=== PATIENT | female | born 1990 | race African-American/Black ===

== ENCOUNTER 2017-09-19 15:55 | Emergency (ER) | payer MEDICAID ==
[~2017-09-19] VITALS: Ht 152.4 cm; Wt 51.3 kg
--- NOTE | 2017-09-19 16:13 | Emergency Room Report ---
History of Present Illness General Chief Complaint: Flu Like Symptoms Source: Patient Present Illness HPI 26 yo female patient presents to ER complaining of MADDEN and shivers. Complains of chills last night. Denies fever or neck pain. Denies weight loss. Reports generalized MADDEN, reports took Tylenol which treated pain. Reports cough with green sputum, denies blood in sputum or calf pain. Reports job interview this morning and feeling worried about it last night. Denies chest pain, SOB, abdominal pain. Denies nausea, vomiting, diarrhea, vision loss. Denies dysuria, hematuria. Reports LMP on month ago, menstrual period begins tomorrow. Denies recent sexual activity. Reports hx of toothache. States has not seen dentist recently. Denies pain with eating. Allergies: Coded Allergies: No Known Allergies (Unverified , 09/19/17) Patient History Past Medical History: see triage record Last Menstrual Period: 08/20/17 Reviewed Nursing Documentation: PMH: Agreed; PSxH: Agreed Nursing Documentation-PMH Past Medical History: No Stated History Review of Systems All Other Systems: negative except mentioned in HPI Physical Exam Vital Signs Date Time Temp Pulse Resp B/P (MAP) Pulse Ox O2 Delivery O2 Flow Rate FiO2 09/19/17 16:07 98.3 82 18 115/74 98 Room Air 98.2 Sp02 EP Interpretation: reviewed, normal General Appearance: well appearing, no apparent distress, alert, GCS 15, non- toxic Head: normocephalic, atraumatic, other - no TTP of maxillary and frontal sinuses Eyes: bilateral eye normal inspection, bilateral eye PERRL ENT: hearing grossly normal, normal pharynx, no angioedema, normal voice, TMs + canals normal, uvula midline, moist mucus membranes, other - no TTP of teeth, multiple dental caries, no erythema of gums, no open sores, no TTP of gums Neck: full range of motion, no meningismus, no bony tend Respiratory: lungs clear, normal breath sounds, no rhonchi, no respiratory distress, no accessory muscle use, no wheezing, speaking full sentences Cardiovascular #1: regular rate, rhythm, no edema Gastrointestinal: non tender, soft, no mass, non-distended, no guarding, no rebound Genitourinary: no CVA tenderness Musculoskeletal: back normal, digits/nails normal, gait/station normal, normal range of motion, non-tender Neurologic: alert, oriented x3, responsive, motor strength/tone normal, sensory intact, other - negative Kernig Psychiatric: mood/affect normal Skin: no rash Lymphatic: no adenopathy Medical Decision Making PA Attestation Dr. Ramos is my supervising Physician whom patient management has been discussed with. Diagnostic Impression: Primary Impression: Cough Additional Impressions: Headache Tooth ache ER Course Pt presents to ED c/o cough and MADDEN. DDX considered but are not limited to influenza, viral URI, strep throat, rhinitis, sinusitis, otitis media, ginigivitis, tension MADDEN, migraine MADDEN, cluster MADDEN. Low suspicion for meningitis, negative Kernig, no fever, no neck pain. VITAL SIGNS are WNL, patient is afebrile ORDERS: none required at this time, diagnosis is clinical ER COURSE: PE benign, lungs clear to auscultation, no pharyngeal erythema or tonsillar exudates. Take Tylenol for MADDEN since it relieves symptoms. Return to ER for new or worsening of symptoms. Cough likely viral in nature, no difficulty breathing, no fever, low suspicion for pneumonia. Does not require imaging at this time, Symptoms possibly related to stress. Followup with dentist, no signs of infection, does not require treatment in ER currently. DISCHARGE: -Rx given for Tylenol/Acetaminophen -Rx given for Promethazine syrup for cough sx. At this time pt is stable for d/c to home. Patient is resting comfortably, in no acute distress, nontoxic appearing. Patient to take medications as instructed Will provide with patient care instructions and any necessary prescriptions. Care plan and follow-up instructions provided. Patient instructed to follow-up with primary care provider in 3 - 5 days. Request neuro referral as needed. Patient questions asked and answered. Patient reports understanding and agreement to treatment plan. ER precautions given. Patient instructed to return to ER immediately for any new or worsening of symptoms including but not limited to increasing SOB, persistent fever. Last Vital Signs Date Time Temp Pulse Resp B/P (MAP) Pulse Ox O2 Delivery O2 Flow Rate FiO2 09/19/17 16:07 98.3 82 18 115/74 98 Room Air 98.2 Disposition: HOME, SELF-CARE Condition: Stable Scripts Promethazine Hcl (PROMETHAZINE HCL*) 6.25 Mg/5 Ml Syrup 5 ML ORAL Q8H, #120 ML 0 Refills Prov: Randy Hu 09/19/17 Acetaminophen* (TYLENOL EXTRA STRENGTH*) 500 Mg Tablet 500 MG ORAL Q8H PRN for Prn Headache/Temp > 101, #30 TAB 0 Refills Prov: Randy Hu 09/19/17 Patient Instructions: Cough, Adult, [id number], Dental Pain, [id number], General Headache Without Cause, [id number] Additional Instructions: Followup with primary care provider in 3 -5 days. Followup with dentist. Take medications as directed. Patient questions asked and answered. ER precautions given, patient instructed to return to ER immediately for any new or worsening of symptoms. Randy Hu Sep 19, 2017 16:13
[2017-09-19 16:24] VITALS: BP 115/74
[2017-09-19] MEDS ORDERED: PROMETHAZI6.25 MG/1 ORAL (16:30)
[2017-09-19] MEDS ORDERED: TYLENOL EXTRA500 MG ORAL (16:30)
[2017-09-19 16:34] VITALS: BP 115/74
== END 2017-09-19 16:35 | disposition home or self-care (01) ==
LOC: EMR 16:30
DX: R51 Headache (principal); R05 Cough; K08.89 Other specified disorders of teeth and supporting structures
CPT/HCPCS: 99284

== ENCOUNTER 2018-08-12 18:03 | Emergency (ER) | payer MEDICAID, OTHER ==
[~2018-08-12] VITALS: Ht 152.4 cm; Wt 50.8 kg
[~2018-08-12 18:03] MED LIST: PROMETHAZI6.25 MG/1 ORAL; TYLENOL EXTRA500 MG ORAL
--- NOTE | 2018-08-12 18:55 | NUR ---
ED Nurse Note: Pt slipped and fell at work on 07/30/18, now complains of L thigh and leg pain. no head trauma, no KO. Pain 11/23 selam. Aox4, VSS. Will cont to monitor.
[2018-08-12] MEDS ORDERED: IBUPROFEN600 MG ORAL (19:27)
--- NOTE | 2018-08-12 19:27 | Emergency Room Report ---
History of Present Illness General Chief Complaint: Lower Extremity Injury Source: Patient Present Illness HPI 27-year-old female patient presents the ER complaining of left hip and inguinal pain for the past 4 days status post trip and fall injury at work. Reports that she was at work when she slipped and went into a "splits like opposed". Reports began experiencing left sided hip and groin pain at that time. States his been taking [id number] medications with mild relief of symptoms. Reports pain with ambulation. Reports pain is been increasing in nature so decided to report to the ER to have evaluation done. Denies hitting her head or loss conscious. Denies abdominal pain. Denies other aggravating or relieving factors. Denies . Allergies: Coded Allergies: No Known Allergies (Unverified , 09/19/17) Patient History Past Medical History: see triage record Last Menstrual Period: 08/05/18 Now: No Reviewed Nursing Documentation: PMH: Agreed; PSxH: Agreed Nursing Documentation-PMH Past Medical History: No Stated History Review of Systems All Other Systems: negative except mentioned in HPI Physical Exam Vital Signs Date Time Temp Pulse Resp B/P (MAP) Pulse Ox O2 Delivery O2 Flow Rate FiO2 08/12/18 18:11 98.1 72 20 114/70 97 Room Air Sp02 EP Interpretation: reviewed, normal General Appearance: well appearing, no apparent distress, alert, GCS 15, non- toxic Head: normocephalic, atraumatic Eyes: bilateral eye normal inspection, bilateral eye PERRL ENT: hearing grossly normal, normal pharynx, no angioedema, normal voice, uvula midline, moist mucus membranes Neck: full range of motion Respiratory: lungs clear, normal breath sounds, no rhonchi, no respiratory distress, no accessory muscle use, no wheezing, speaking full sentences Cardiovascular #1: regular rate, rhythm, no edema Gastrointestinal: non tender, soft, no mass, non-distended, no guarding, no rebound Genitourinary: no CVA tenderness Musculoskeletal: back normal, digits/nails normal, gait/station normal, normal range of motion, non-tender, no calf tenderness, pelvis stable, other - Pain with adduction and internal rotation, no leg length discrepancy Neurologic: alert, oriented x3, responsive, motor strength/tone normal, sensory intact Skin: no rash Medical Decision Making PA Attestation Dr. Fernando is my supervising Physician whom patient management has been discussed with. Diagnostic Impression: Primary Impression: Inguinal strain ER Course Pt. presents to the ED c/o left hip and groin pain. Ddx considered but are not limited to fracture, sprain, strain, contusion, dislocation. No erythema, no warmth to touch, no fever, nontoxic appearing, low suspicion for septic joint. Soft compartments, no pulselessness, no pallor, no paresthesias, low suspicion for compartment syndrome at this time. Vital signs: are WNL, pt. is afebrile Ordered X-ray and pain medication. ER COURSE Provided with pain medication. An X-ray of the hip and pelvis were negative for acute fracture or disease. Likely groin strain causing pain symptoms. Take Motrin or Tylenol for pain symptoms. Patient instructed on RICE method: rest, ice, compression, elevation. Patient instructed on rest, ice and heat. Patient instructed to be WBAT Workmans compensation paperwork completed. Contact information for orthopedic urgent care provided, follow-up with urgent care if unable to followup with primary care provider and get referral to pre billing specialist. Followup with primary care provider. Discuss referral to ortho/pain management/ PT as needed. Discuss further imaging with MRI/CT as needed. DISCHARGE: At this time pt. is stable for d/c to home. Patient is resting comfortably, in no acute distress, nontoxic appearing, talking without difficulty. Will provide printed patient care instructions, and any necessary prescriptions. Patient instructed to follow with primary care provider in 3 - 5 days and to request further follow-up as needed. Care plan and follow up instructions have been discussed with the patient prior to discharge. Take medications as directed. Patient questions asked and answered. Patient reports understanding and agreement to treatment plan. ER precautions given, patient instructed to return to ER immediately for any new or worsening of symptoms. - Please note that this Emergency Department Report was dictated using [employer] producer technology software, occasionally this can lead to erroneous entry secondary to interpretation by the dictation equipment. Other X-Ray Diagnostic Results Other X-Ray Diagnostic Results #1: X-Ray ordered: Left hip # of Views/Limited Vs Complete: 2 View Indication: Pain EP Interpretation: Yes PA Xray: Interpretation reviewed, by supervising MD, and agrees with findings. Interpretation: no dislocation, no soft tissue swelling, no fractures Impression: No acute disease PA Scribe Text David Hu PA-C Other X-Ray Diagnostic Results #2: X-Ray ordered: Pelvis # of Views/Limited Vs Complete: 1 View Indication: Pain EP Interpretation: Yes PA Xray: Interpretation reviewed, by supervising MD, and agrees with findings. Interpretation: no dislocation, no soft tissue swelling, no fractures Impression: No acute disease [place]NA Scribe Text David Hu PA-C Last Vital Signs Date Time Temp Pulse Resp B/P (MAP) Pulse Ox O2 Delivery O2 Flow Rate FiO2 08/12/18 18:11 98.1 72 20 114/70 97 Room Air Status: improved Disposition: HOME, SELF-CARE Condition: Stable Scripts Ibuprofen* (MOTRIN*) 600 Mg Tablet 600 MG ORAL Q8H PRN for For Pain, #30 TAB 0 Refills Prov: Randy Hu 08/12/18 Patient Instructions: Groin Strain Additional Instructions: Patient instructed to follow up with primary care provider and discuss further referral to orthopedics/physical therapy/pain management as needed. If unable to followup with PCP, followup with orthopedic urgent care in 5-7 days , call to schedule appointment. Patient instructed on RICE method: rest, ice, compression, elevation. Patient instructed to WBAT. Take medications as directed. Patient questions asked and answered. ER precautions given, patient instructed to return to ER immediately for any new or worsening of symptoms. [facility] [address] [facility], [address] [email or web address] Randy Hu Aug 12, 2018 19:27
[2018-08-12 19:30] VITALS: BP 114/70
--- NOTE | 2018-08-12 19:30 | NUR ---
ER DISCHARGE NOTE: Patient is cleared to be discharged per ERMD, pt is aox4, on room air, with stable vital signs. pt was given dc and prescription instructions, pt was able to verbalize understanding, pt id band and iv site removed without complications. pt is able to ambulate with steady gait. pt took all belongings.
--- NOTE | 2018-08-13 11:47 | Diagnostic Imaging Report ---
Indication: Left hip pain Technique: 2 views of the left hip Comparison: Findings: No acute fractures. No dislocations. Joint spaces are preserved. Normal mineralization. Impression: No acute process
--- NOTE | 2018-08-13 11:52 | Diagnostic Imaging Report ---
Indication: Pelvic pain Technique: One view of the pelvis Comparison: none Findings: No acute fractures. No dislocations. The joint spaces are preserved Impression: Negative
== END 2018-08-12 19:30 | disposition home or self-care (01) ==
LOC: EMR 18:27
DX: S39.011A Strain of muscle, fascia and tendon of abdomen, initial encounter (principal); W01.0XXA Fall on same level from slipping, tripping and stumbling without subsequent striking against object, initial encounter; Y92.89 Other specified places as the place of occurrence of the external cause; M25.552 Pain in left hip
CPT/HCPCS: 72170; 73502; 99284

== ENCOUNTER 2018-10-17 16:16 | Emergency (ER) | payer SELFPAY ==
[~2018-10-17] VITALS: Ht 152.4 cm; Wt 50.3 kg
[~2018-10-17 16:16] MED LIST changes: +IBUPROFEN600 MG ORAL
[2018-10-17 16:30] VITALS: BP 109/70
[2018-10-17] MEDS ORDERED: NKM (16:33)
--- NOTE | 2018-10-17 16:47 | Emergency Room Report ---
History of Present Illness General Chief Complaint: Flu Like Symptoms Source: Patient Present Illness [facility] The patient is a 27-year-old female presenting for sore throat and cough for the past 2 days. She states that she was at an outdoor festival in [place] one week prior and believes this is where she was infected. She is also complaining of headache. She denies nausea, vomiting, fever, chills, rash. She is up-to-date with immunizations except for influenza Allergies: Coded Allergies: No Known Allergies (Unverified , 09/19/17) Patient History Past Medical History: see triage record Pertinent Family History: none Last Menstrual Period: on period Reviewed Nursing Documentation: PMH: Agreed; PSxH: Agreed Nursing Documentation-PMH Past Medical History: No Stated History Review of Systems All Other Systems: negative except mentioned in HPI Physical Exam Vital Signs Date Time Temp Pulse Resp B/P (MAP) Pulse Ox O2 Delivery O2 Flow Rate FiO2 10/17/18 16:30 99.7 14 109/70 98 Room Air 10/17/18 16:30 68 Sp02 EP Interpretation: reviewed, normal General Appearance: no apparent distress, alert, GCS 15, non-toxic Head: normocephalic, atraumatic Eyes: bilateral eye normal inspection, bilateral eye PERRL ENT: hearing grossly normal, no angioedema, normal voice, TMs + canals normal, uvula midline, tonsillar swelling, pharyngeal erythema Neck: full range of motion, supple/symm/no masses Respiratory: chest non-tender, lungs clear, normal breath sounds, no wheezing, speaking full sentences Cardiovascular #1: regular rate, rhythm, no edema Musculoskeletal: back normal, gait/station normal, normal range of motion, non- tender Neurologic: alert, oriented x3, responsive, motor strength/tone normal, sensory intact, speech normal Psychiatric: judgement/insight normal, memory normal, mood/affect normal, no suicidal/homicidal ideation Skin: normal color, no rash, warm/dry, well hydrated Lymphatic: adenopathy Medical Decision Making PA Attestation Dr. Davalos is my supervising physician. Patient management was discussed with my supervising physician Diagnostic Impression: Primary Impression: Pharyngitis, acute Qualified Codes: J02.9 - Acute pharyngitis, unspecified ER Course The patient is a 27-year-old female presenting for sore throat and cough for the past 2 days. Differential diagnosis include but not limited to pharyngitis, sinusitis, AOM, bronchitis, PNA Physical exam: Vitals within normal limits. Afebrile. No apparent distress HEENT exam: There is bilateral tonsillar edema, erythema. Uvula midline. Moist mucous membranes. There is bilateral cervical lymphadenopathy. Lungs are clear to auscultation bilaterally Skin is warm and dry. No rash The patient will be discharged home with a prescription for amoxicillin, motrin , cough meds, and is given ER precautions. Patient will followup with primary care Last Vital Signs Date Time Temp Pulse Resp B/P (MAP) Pulse Ox O2 Delivery O2 Flow Rate FiO2 10/17/18 16:33 68 14 Room Air 10/17/18 16:30 99.7 98 10/17/18 16:30 109/70 Status: improved Disposition: HOME, SELF-CARE Condition: Improved Scripts D-Methorphan Hb/Prometh Hcl* (PROMETHAZINE-DM SYRUP*) 118 Ml Syrup 5 ML ORAL Q6H PRN for For Cough, #118 ML 0 Refills Prov: SIERRA NEWELL P.A. 10/17/18 Amoxicillin* (AMOXIL*) 500 Mg Capsule 500 MG ORAL Q12HR, #14 CAP Prov: TERZIANJAYJAYY P.A. 10/17/18 Ibuprofen* (MOTRIN*) 600 Mg Tablet 600 MG ORAL Q8H PRN for For Pain, #30 TAB 0 Refills Prov: TAANJAYJAYY P.A. 10/17/18 SIERRA NEWELL P.A. October 17, 2018 16:47
[2018-10-17] MEDS ORDERED: IBUPROFEN600 MG ORAL (16:58)
[2018-10-17] MEDS ORDERED: PROMETHAZINE-D118 ML ORAL (16:58)
[2018-10-17] MEDS ORDERED: AMOXICILLIN500 MG ORAL (16:58)
[2018-10-17] MEDS ORDERED: Ketorolac 60mg Inj IM ONE (17:00)
[2018-10-17 17:20] VITALS: BP 109/70
== END 2018-10-17 17:20 | disposition home or self-care (01) ==
LOC: EMR 16:55
DX: J02.9 Acute pharyngitis, unspecified (principal)
CPT/HCPCS: 96372; 99283

== ENCOUNTER 2019-02-18 02:00 | Emergency (ER) | payer SELFPAY ==
[~2019-02-18] VITALS: Ht 152.4 cm; Wt 51.3 kg
[~2019-02-18 02:00] MED LIST changes: +AMOXICILLIN500 MG ORAL; +NKM; +PROMETHAZINE-D118 ML ORAL
--- NOTE | 2019-02-18 02:10 | NUR ---
ED Nurse Note: Patient presents with complaints of itching all over since friday. Patient has concerns of bed bug bites.
[2019-02-18 02:11] VITALS: BP 117/77
[2019-02-18] MEDS ORDERED: BACTRIM DS TAB1 EAC1 ORAL (02:26)
[2019-02-18] MEDS ORDERED: BENADRYL25 MG ORAL (02:26)
--- NOTE | 2019-02-18 02:26 | Emergency Room Report ---
History of Present Illness General Chief Complaint: Skin Rash/Abscess Source: Patient Present Illness HPI This is a 28-year-old with no past medical history. She presents chief complaint of rash and itching. Onset for the last 4 days. She slept at a friend's friend's house on Friday. The next day she developed some rash on her body and forearm. Getting worse. Now with some redness. Has not take anything for it. Does not know other people at the same problem. Denies any fever chills but denies any nausea vomiting but no drainage. Allergies: Coded Allergies: No Known Allergies (Unverified , 09/19/17) Patient History Past Medical History: see triage record, old chart reviewed Past Surgical History: other Pertinent Family History: none Social History: Denies: smoking Last Menstrual Period: current Now: No : 2 Para: 2 Immunizations: other Reviewed Nursing Documentation: PMH: Agreed; PSxH: Agreed Nursing Documentation-PMH Past Medical History: No Stated History Review of Systems Eye: Denies: eye pain, blurred vision ENT: Denies: ear pain, nose congestion, throat swelling Respiratory: Denies: cough, shortness of breath Cardiovascular: Denies: chest pain, palpitations Gastrointestinal: Denies: abdominal pain, diarrhea, nausea, vomiting Musculoskeletal: Denies: back pain, joint pain Skin: Reports: rash Neurological: Denies: headache, numbness Endocrine: Denies: increased thirst, increased urine Hematologic/Lymphatic: Denies: easy bruising All Other Systems: negative except mentioned in HPI Physical Exam Vital Signs Date Time Temp Pulse Resp B/P (MAP) Pulse Ox O2 Delivery O2 Flow Rate FiO2 02/18/19 02:04 99.7 80 16 117/77 (90) 97 Room Air Vitals normal Sp02 EP Interpretation: reviewed, normal General Appearance: well appearing, no apparent distress, alert Head: normocephalic, atraumatic Eyes: bilateral eye PERRL, bilateral eye EOMI ENT: hearing grossly normal, normal pharynx Neck: full range of motion, supple, no meningismus Respiratory: chest non-tender, lungs clear, normal breath sounds Cardiovascular #1: regular rate, rhythm, no murmur Gastrointestinal: normal bowel sounds, non tender, no mass, no organomegaly, no bruit, non-distended Musculoskeletal: back normal, gait/station normal, normal range of motion, other - Bilateral forearms: She has scattered 1 to 2 cm raised erythematous rash. No abscess. There is some surrounding erythema. Psychiatric: mood/affect normal Medical Decision Making Diagnostic Impression: Primary Impression: Cellulitis Qualified Codes: L03.119 - Cellulitis of unspecified part of limb ER Course Patient may have some bedbug bites with secondary cellulitis now. Antibiotics given. She denies any drug abuse. I see no evidence of any abscess or necrotizing fasciitis. Will discharge home. Last Vital Signs Date Time Temp Pulse Resp B/P (MAP) Pulse Ox O2 Delivery O2 Flow Rate FiO2 02/18/19 02:11 99.7 86 16 117/77 97 Room Air Status: improved Disposition: HOME, SELF-CARE Condition: Stable Scripts Trimethoprim/Sulfamethoxazole 160/800* (BACTRIM DS TABLET*) 1 Each Tablet 1 TAB ORAL Q12H, #14 TAB 0 Refills Prov: Mikel Emery MD 02/18/19 Diphenhydramine Hcl* (BENADRYL*) 25 Mg Capsule 50 MG ORAL Q6H PRN for Itching, #30 CAP Prov: Mikel Emery MD 02/18/19 Additional Instructions: Keep Wound clean. Follow-up with in 7 days. Return if worse. Mikel Emery MD Feb 18, 2019 02:26
--- NOTE | 2019-02-18 02:27 | NUR ---
ED Nurse Note: Patient cleared for discharge, patient verbalized understanding of discharge instructions. ID band removed. Patient is A&Ox4, and ambulatory with steady gait. Patient departed with all belongings.
[2019-02-18 02:28] VITALS: BP 117/77
[2019-02-18] MEDS ORDERED: Bactrim-DS 1 tab ORAL ONE (02:30)
== END 2019-02-18 02:30 | disposition home or self-care (01) ==
LOC: EMR 02:25
DX: L03.90 Cellulitis, unspecified (principal)
CPT/HCPCS: 99282

== ENCOUNTER 2019-04-27 13:13 | Emergency (ER) | payer OTHER ==
[~2019-04-27] VITALS: Ht 152.4 cm; Wt 51.3 kg
[~2019-04-27 13:13] MED LIST changes: +BACTRIM DS TAB1 EAC1 ORAL; +BENADRYL25 MG ORAL
[2019-04-27 13:22] VITALS: BP 128/88
--- NOTE | 2019-04-27 13:22 | NUR ---
ED Nurse Note: Patient walked in to ER due to possible insect bites on her left elbow and neck with itchiness. Skin is intact, no discharges noted. No SOB. VSS.
--- NOTE | 2019-04-27 13:48 | NUR ---
ED Nurse Note: ERMD at bedside
--- NOTE | 2019-04-27 13:57 | Emergency Room Report ---
History of Present Illness General Chief Complaint: Skin Rash/Abscess Source: Patient Present Illness HPI 28-year-old female presents to the emergency department complaining of itchy, swollen, erythematous and warm insect bites of the left forearm, left elbow and left side of the neck x2 days. Patient reports progressive area of erythema and warmth in the forearm area. Patient denies pain with range of motion of the left elbow. 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 Patient states that itching is almost unbearable. Pt. denies fevers, chills or swollen tender lymph nodes. Denies lesions/rashes elsewhere on the body. Denies new medications or body washes or creams. Denies swelling of the lips, tongue , throat or airway. Denies wheezing, or shortness of breath. Denies recent travel, recent illness or ill contacts. denies blisters, oral lesions, or sloughing of the skin. Allergies: Coded Allergies: No Known Allergies (Unverified , 09/19/17) Patient History Past Medical History: see triage record Past Surgical History: none Pertinent Family History: none Now: No Immunizations: UTD Reviewed Nursing Documentation: PMH: Agreed; PSxH: Agreed Nursing Documentation-PMH Past Medical History: No Stated History Review of Systems All Other Systems: negative except mentioned in HPI Physical Exam Vital Signs Date Time Temp Pulse Resp B/P (MAP) Pulse Ox O2 Delivery O2 Flow Rate FiO2 04/27/19 13:18 98.6 57 16 128/88 (101) 100 Room Air Sp02 EP Interpretation: reviewed, normal General Appearance: no apparent distress, alert, GCS 15, non-toxic Head: normocephalic, atraumatic Eyes: bilateral eye normal inspection, bilateral eye PERRL ENT: hearing grossly normal, normal pharynx, no angioedema, normal voice Neck: full range of motion Respiratory: lungs clear, normal breath sounds, no wheezing, speaking full sentences Cardiovascular #1: regular rate, rhythm Musculoskeletal: gait/station normal, normal range of motion, non-tender Neurologic: alert, oriented x3, responsive, motor strength/tone normal, sensory intact, speech normal, grossly normal Psychiatric: judgement/insight normal Skin: rash - three insect bites: 1cm each in diameter on the left forearm, elbow and left side of the neck. there is moderate surrounding erythema and warmth on the left forearm. FROM of left elbow. No blisters or vesicles Lymphatic: no adenopathy Medical Decision Making PA Attestation Dr. Ramos is my supervising Physician whom patient management has been discussed with. Diagnostic Impression: Primary Impression: Insect bites of multiple sites, infected ER Course 28-year-old female presents to the emergency department complaining of itchy, swollen, erythematous and warm insect bites of the left forearm, left elbow and left side of the neck x2 days. Patient reports progressive area of erythema and warmth in the forearm area. Patient denies pain with range of motion of the left elbow. 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 Patient states that itching is almost unbearable. Pt. denies fevers, chills or swollen tender lymph nodes. Denies lesions/rashes elsewhere on the body. Denies new medications or body washes or creams. Denies swelling of the lips, tongue , throat or airway. Denies wheezing, or shortness of breath. Denies recent travel, recent illness or ill contacts. denies blisters, oral lesions, or sloughing of the skin Ddx considered but are not limited to cellulitis, scabies, insect bites, tic bites, spider bites, contact dermatitis, Drug reaction, allergic reaction, fungal infection, lice. Vital signs: are WNL, pt. is afebrile H&PE are most consistent with multiple insect bites in addition to suspected secondary cellulitic infection of the left forearm. ORDERS: none required at this time, the diagnosis is clinical ED INTERVENTIONS: -Benadryl PO DISCHARGE: At this time pt. is stable for d/c to home. Will provide printed patient care instructions, and any necessary prescriptions. Care plan and follow up instructions have been discussed with the patient prior to discharge. Last Vital Signs Date Time Temp Pulse Resp B/P (MAP) Pulse Ox O2 Delivery O2 Flow Rate FiO2 04/27/19 13:22 98.6 82 16 128/88 100 Room Air Disposition: HOME, SELF-CARE Condition: Stable Scripts Cephalexin* (KEFLEX*) 500 Mg Capsule 500 MG ORAL EVERY 12 HOURS for 7 Days, #14 CAP 0 Refills Prov: Genia Lo 04/27/19 Diphenhydramine Hcl (BENADRYL ALLERGY) 25 Mg Tablet 25 MG PO Q6HR, #30 TAB Prov: Genia Lo 04/27/19 Hydrocortisone 2% Cream (ANTI-ITCH 2% CREAM) Y Cr 1 APPLIC TP Q6HR, #28 GM Prov: Genia Lo 04/27/19 Departure Forms: Return to Work Return to Work Date: Apr 28, 2019 Work Restrictions: No Heavy Lifting Other Restrictions: [place] areas of heat/ higher temperatures. May return Sooner if resolved. Return to Full Activity: May 01, 2019 Patient Instructions: Insect Bite Additional Instructions: Take medications as directed. Follow up with a Primary Care Provider in 3-5 days, even if your symptoms have resolved. --Please review list of primary care clinics, if you do not already have a primary care provider Return sooner to ED if new symptoms occur, or current symptoms become worse. Do not drink alcohol, drive, or operate heavy machinery while taking Benadryl as this may cause drowsiness. - Please note that this Emergency Department Report was dictated using [employer] technology software, occasionally this can lead to erroneous entry secondary to interpretation by the dictation equipment. Genia Lo Apr 27, 2019 13:57
[2019-04-27] MEDS ORDERED: ANTI-ITCH28 G1 TP (13:59)
[2019-04-27] MEDS ORDERED: BENADRYL ALLERG25 M1 PO (13:59)
[2019-04-27] MEDS ORDERED: CEPHALEXIN500 MG ORAL (13:59)
--- NOTE | 2019-04-27 14:07 | NUR ---
ER DISCHARGE NOTE: Patient is cleared to be discharged per ERMD, pt is aox4, on room air, with stable vital signs. pt was given dc and prescription instructions, pt was able to verbalize understanding, pt id band removed without complications. pt is able to ambulate with steady gait. pt took all belongings.
[2019-04-27 14:09] VITALS: BP 128/88
== END 2019-04-27 14:07 | disposition home or self-care (01) ==
LOC: EMR 14:00
DX: S50.862A Insect bite (nonvenomous) of left forearm, initial encounter (principal); S50.362A Insect bite (nonvenomous) of left elbow, initial encounter; S10.96XA Insect bite of unspecified part of neck, initial encounter; W57.XXXA Bitten or stung by nonvenomous insect and other nonvenomous arthropods, initial encounter; Y92.9 Unspecified place or not applicable
CPT/HCPCS: 99282

== ENCOUNTER 2019-09-04 14:03 | Emergency (ER) | payer OTHER ==
[~2019-09-04] VITALS: Ht 152.4 cm; Wt 51.3 kg
[~2019-09-04 14:03] MED LIST changes: +ANTI-ITCH28 G1 TP; +BENADRYL ALLERG25 M1 PO; +CEPHALEXIN500 MG ORAL
--- NOTE | 2019-09-04 14:25 | Emergency Room Report ---
History of Present Illness General Chief Complaint: Upper Extremity Injury Source: Patient Present Illness HPI 45 minutes prior to presentation the patient was pulling hard on a gate. It became free and banged her left forearm. She has severe pain at this time. She rates the pain 10/10 and aching and constant not radiating. The shoulder is minimally tender. She denies any numbness. There is slight redness where the gate hit her forearm. Patient does believe she is at this time and has no allergies. Patient is right-handed. COVID-19 risk:Contact w/high r: No COVID-19 risk:Travel to affect: No Has patient experienced yan: No Allergies: Coded Allergies: No Known Allergies (Unverified , 09/19/17) Patient History Past Medical History: see triage record Social History: Denies: smoking Social History Narrative Works in [employer] Last Menstrual Period: 08/16/19 Nursing Documentation-[facility] Past Medical History: No Stated History Review of Systems Musculoskeletal: Reports: see HPI Skin: Reports: see HPI Neurological: Reports: see HPI Physical Exam Vital Signs Date Time Temp Pulse Resp B/P (MAP) Pulse Ox O2 Delivery O2 Flow Rate FiO2 09/04/19 14:10 98.6 76 16 134/85 (101) 97 Room Air Sp02 EP Interpretation: reviewed, normal General Appearance: well appearing, no apparent distress, GCS 15 Head: normocephalic Eyes: bilateral eye normal inspection, bilateral eye PERRL ENT: moist mucus membranes Neck: full range of motion Respiratory: normal inspection Cardiovascular #1: regular rate, rhythm Cardiovascular #2: 2+ radial (L) Gastrointestinal: normal inspection Musculoskeletal: gait/station normal, tenderness - Left forearm just distal to the elbow on the radial side. No radial head tenderness. Minimal tenderness of the shoulder with good passive range of motion. Wrist is nontender and there is no deformity. Neurologic: distal neuro normal Psychiatric: mood/affect normal Skin: no rash, warm/dry, other - Redness 2 cm diameter proximal forearm Medical Decision Making Diagnostic Impression: Primary Impression: Contusion of left forearm Qualified Codes: S50.12XA - Contusion of left forearm, initial encounter ER Course Patient presents with injury to the left forearm. There is no deformity at this time. Differential includes contusion, fracture. X-rays indicated. Also the patient will receive a dose of [place] and Motrin. X-ray without fracture. Sling applied by nurse and position excellent with improvement as examined by me. No reported numbness or weakness. Discussed findings with patient. Patient stable for outpatient observation and treatment. Other X-Ray Diagnostic Results Other X-Ray Diagnostic Results : X-Ray ordered: Left forearm # of Views/Limited Vs Complete: 2 View Indication: Other EP Interpretation: Yes Interpretation: no dislocation, no soft tissue swelling, no fractures Impression: No acute disease Electronically Signed by: Electronically signed by Emil Davalos MD Last Vital Signs Date Time Temp Pulse Resp B/P (MAP) Pulse Ox O2 Delivery O2 Flow Rate FiO2 09/04/19 15:50 98.6 82 18 132/87 99 Room Air Status: improved Disposition: HOME, SELF-CARE Condition: Improved Scripts Hydrocodone Bit/Acetaminophen 5-325* (NORCO 5-325 TABLET*) 1 Each Tablet 1 TAB ORAL Q6H PRN for FOR PAIN, #6 TAB 0 Refills Prov: Emil Davalos MD 09/04/19 Ibuprofen* (MOTRIN*) 600 Mg Tablet 600 MG ORAL Q6H PRN for For Pain, #20 TAB Prov: Emil Davalos MD 09/04/19 Emil Davalos MD Sep 04, 2019 14:25
[2019-09-04 14:30] VITALS: BP 138/89
[2019-09-04] MEDS ORDERED: HYDROcodone/Acetamin 5/325 tab PO ONE (14:30)
--- NOTE | 2019-09-04 14:42 | Diagnostic Imaging Report ---
EXAM: XR Left Forearm, 2 Views CLINICAL HISTORY: TRAUMA TECHNIQUE: Frontal and lateral views of the left forearm. COMPARISON: No relevant prior studies available. FINDINGS: Bones/joints: Unremarkable. No acute fracture. No dislocation. Soft tissues: Unremarkable. IMPRESSION: Normal left forearm x-rays.
[2019-09-04] MEDS ORDERED: IBUPROFEN600 MG ORAL (15:43)
[2019-09-04] MEDS ORDERED: NORCO 5-325 TA1 EAC1 ORAL (15:43)
[2019-09-04 15:50] VITALS: BP 132/87
== END 2019-09-04 15:51 | disposition home or self-care (01) ==
LOC: EMR 14:55
DX: S50.12XA Contusion of left forearm, initial encounter (principal); W22.8XXA Striking against or struck by other objects, initial encounter; Y92.9 Unspecified place or not applicable
CPT/HCPCS: 99283

== ENCOUNTER 2020-03-07 09:22 | Emergency (ER) | payer SELFPAY ==
[~2020-03-07] VITALS: Ht 160 cm; Wt 54.4 kg
[~2020-03-07 09:22] MED LIST changes: +NORCO 5-325 TA1 EAC1 ORAL
[2020-03-07 09:28] VITALS: BP 109/71
--- NOTE | 2020-03-07 09:34 | Emergency Room Report ---
History of Present Illness General Chief Complaint: Upper Extremity Injury Source: Patient Present Illness HPI Patient is a 29-year-old female who reports having increased right upper extremity pain. Patient is right-hand dominant. Reports having a fall approximately 3 days ago. Patient states that she had fallen onto her right upper extremity primarily. She has been able to move her arm but had increased pain with movements. Allergies: Coded Allergies: No Known Allergies (Unverified , 09/19/17) COVID-19 Screening Contact w/high risk pt: No Recent Travel to affected area: No Experienced COVID-19 symptoms?: No Patient History Past Medical History: see triage record Reviewed Nursing Documentation: PMH: Agreed; PSxH: Agreed Review of Systems All Other Systems: negative except mentioned in HPI Physical Exam Sp02 EP Interpretation: reviewed, normal General Appearance: normal inspection, well appearing, no apparent distress, alert, GCS 15, non-toxic Head: atraumatic ENT: normal ENT inspection, hearing grossly normal, normal voice Neck: normal inspection, full range of motion, supple, no bony tend Respiratory: normal inspection, lungs clear, normal breath sounds, no respiratory distress, no retraction, no wheezing Cardiovascular #1: regular rate, rhythm, no edema Gastrointestinal: normal inspection, normal bowel sounds, non tender, soft, no guarding, no hernia Genitourinary: no CVA tenderness Musculoskeletal: normal inspection, back normal, normal range of motion Neurologic: alert, motor strength/tone normal, assistant community manager III-XII nml as tested, oriented x3, responsive, speech normal, normal inspection Psychiatric: normal inspection, judgement/insight normal, mood/affect normal Medical Decision Making Diagnostic Impression: Primary Impression: Contusion of right arm ER Course Patient presented for right-sided elbow pain. Differential diagnosis include was not limited to contusion, dislocation, fracture among others. X-ray imaging was ordered due to patient's recent trauma. Patient appears to have preserved range of motion to her elbow. Does not appear to be any evidence of other injuries. Patient has some slight tenderness to the medial epicondyle. Olecranon and lateral epicondyle are nontender. Patient does not appear to have any evidence of fracture on x-ray imaging. Patient was placed in an Jerrod wrap and given a sling. She is advised to follow-up with her primary care physician for recheck. She is advised to take pain medications as prescribed. She is to return if worse. The patient is advised to follow up with primary care doctor in 2-3 days. Patient is advised to return if any worsening condition or if any changes in status that are concerning. This report is dictated with [employer] employment and claims aide software which may occasionally lead to discrepancies related to use of this software. Status: improved Disposition: HOME, SELF-CARE Condition: Stable Scripts Ibuprofen (Ibuprofen) 400 Mg Tablet 400 MG PO EVERY 8 HOURS, #30 TAB Prov: Mac Ramos MD 03/07/20 Diclofenac Sodium (VOLTAREN) 100 Gm Gel..gram. 100 GM TP TWICE A DAY for pain, #100 GM Prov: Mac Ramos MD 03/07/20 Mac Ramos MD Mar 07, 2020 09:33
--- NOTE | 2020-03-07 09:36 | NUR ---
ED Nurse Note: Patient from home and walked in due to right elbow injury. Per pt, she was in [place] and mistepped on a curb then she landed on her right elbow. No obvious dislocation upon ED arrival and pt states she is unable to move it. AAO x4, ambulatory with steady gait.
--- NOTE | 2020-03-07 09:45 | NUR ---
ED Nurse Note: Collected urine then sent.
[2020-03-07] MEDS ORDERED: VOLTAREN100 G1 TP (10:19)
[2020-03-07] MEDS ORDERED: IBUPROFEN400 M1 PO (10:19)
[2020-03-07 10:23] VITALS: BP 117/64
--- NOTE | 2020-03-07 10:23 | NUR ---
ER DISCHARGE NOTE: Patient is cleared to be discharged per ERMD, pt is aox4, on room air, with stable vital signs. pt was given dc and prescription instructions, pt was able to verbalize understanding, pt id band removed. pt is able to ambulate with steady gait. pt took all belongings.
--- NOTE | 2020-03-07 14:00 | Diagnostic Imaging Report ---
Indications:Right elbow pain Technique: Three or 4 views of the elbow Comparison: None Findings: No acute fractures. No dislocations. The joint spaces are preserved. No definite joint effusion Impression: No acute process
== END 2020-03-07 10:23 | disposition home or self-care (01) ==
LOC: EMR 09:50
DX: S40.021A Contusion of right upper arm, initial encounter (principal); W19.XXXA Unspecified fall, initial encounter; Y92.9 Unspecified place or not applicable
CPT/HCPCS: 81025; 99283